=== PATIENT | male | born 1965 | race Caucasian/White ===

== ENCOUNTER 2021-02-09 16:55 | Emergency (ER) | payer BC, SELFPAY ==
[2021-02-09 17:30] VITALS: BP 93/59; PULSE 76; RESP 16; TEMP 37.1; O2SAT 97
--- NOTE | 2021-02-09 17:50 | ED_ITS ---
HPI - COVID General: Chief Complaint: COVID symptoms Stated Complaint: COVID +. Time Seen by Provider: 02/09/21 17:50 History of Present Illness: HPI Narrative: 55-year-old male patient comes in today for evaluation. Patient for the last 3 days has had symptoms of COVID-19. Patient had done a [id number] COVID-19 test that showed positive. Patient had talked to his primary care provider on the and was prescribed azithromycin. Patient came in today after talking to the office again because he had registered 88% on room air 1 time. The patient's O2 sat came up to 95% after he got up and moved around. Patient appears well. Patient appears no acute distress. MD complaint: known COVID positive COVID 19 common symptoms: positive cough, fatigue and nasal congestion Onset (ago): day(s) Severity: mild Pertinent comorbid conditions: obesity and other (Asthma) Treatment prior to arrival: antibiotics COVID Results: No Data to Display Review of Systems General: Reports: 10 or more systems reviewed and unremarkable except in HPI and below Const: Reports: fatigue ENMT: Reports: nasal congestion PFSH ED PFSH: Medical History (Updated 02/09/21 @ 18:04 by IZZY Tsai) Acute bacterial sinusitis Social History (Updated 02/09/21 @ 17:51 by Aneudy Murray RN) Smoking and tobacco status: never smoked Alcohol intake: current Alcohol intake frequency: holidays/special occasions only Physical Exam Const: COMMON NORMALS: no acute distress and patient oriented x3 GENERAL APPEARANCE: cooperative HENMT: COMMON NORMALS: normocephalic and Normal external nose present HEAD & SCALP: normal to inspection and normocephalic NOSE: Normal external nose present MOUTH: Normal oral and palatal mucosa present Eye: GENERAL EYE: appearance normal, both eyes and all related structures Neck/C-Spine: COMMON NORMALS: full ROM Chest: COMMONS NORMALS: normal inspection of the chest Resp: COMMON NORMALS: normal respiratory effort and clear to auscultation bilaterally EFFORT & INSPECTION: Yes able to speak in complete sentences AUSCULTATION: clear to auscultation bilaterally Cardio: COMMON NORMALS: regular rate and regular rhythm RATE: regular rate RHYTHM: regular rhythm GI: COMMON NORMALS: non-tender Extremity: COMMON NORMALS: normal to inspection Neuro: COMMON NORMALS: patient oriented x3 and moves all extremities Psych: COMMON NORMALS: mental status grossly normal and cooperative Skin: COMMON NORMALS: no rashes or lesions noted GENERAL SKIN EXAM: no rashes or lesions noted Course Vital Signs: Vital signs: Vital Signs Temperature 98.7 F 02/09/21 17:30 Pulse Rate 76 02/09/21 17:30 Respiratory Rate 16 02/09/21 17:30 Blood Pressure 93/59 02/09/21 17:30 Pulse Oximetry 97 02/09/21 17:30 MDM - COVID MDM Narrative: Medical decision making narrative: 55-year-old male patient comes in today for complaints of episode of hypoxia. Patient recently was diagnosed with COVID-19 on 02/08 after being ill for 3 days since he . Patient became concerned when he was laying down and he went to check his oxygen because he felt slightly short of breath and noticed that he was satting 88%. Patient got up and moved around and his pulse oxygen came up to 95%. After talking with his primary care provider he was recommended to come to the ER for further evaluation. On exam patient's lungs were clear to auscultation. Vital signs were normal. Differential diagnosis includes but not limited to pneumonia, COVID-19, upper respiratory infection. Reviewed exam with patient with recommendations for treatment with monoclonal antibodies. We will go ahead and set up for patient for outpatient infusion. Case management was notified to assist with the appointment time. Prescription was written and placed in the chart. I reviewed with patient the recommendations of the treatment and what the benefits and the risks were. Patient reported understanding and agreed to plan. COVID Results: No Data to Display Discharge Plan Discharge Patient Disposition: Home Clinical Impression: COVID-19 Condition: Stable Prescriptions: No Action azithromycin [Zithromax Z-Chito] 250 mg tablet See Rx Instructions PO .COMPLEX Qty: 6 RF: 0 Discharge Orders: Discharge ED (Routine); Ordered 02/09/21 Ordered By: Alvarez Bailey Referrals: Sissy Coello FNP [Primary Care Provider] - Discharge Diet: Usual diet Discharge Activity: Increase activity as tolerated Patient Instructions: Viral Syndrome (ED), Opioid Safety Activity Restrictions/Additional Instructions: Continue with routine care. Drink plenty of water. Use acetaminophen and ibuprofen for pain and fever. Case management will contact you regarding the infusion time appointment for monoclonal antibodies. Continue to monitor oxygen saturation at home. If your oxygen saturation stays below 90 without after position change, cough, and water to clear airways. Return to the ER for further evaluation and treatment. Return to the ER for chest pain and increasing shortness of breath. Coding Level of Care Code ED Appliance Technician for Geno Dias
--- NOTE | 2021-02-09 18:57 | PC.NURSE ---
pt seen and discharged from [facility]. No nurse performed assessment on this pt.
--- NOTE | 2021-02-11 10:22 | DCPLANNER ---
Addendum entered by Luz Harmon 02/18/21 13:52: global marketing manager called patient to check on patient after receiving the monoclonal antibody infusion. global marketing manager unable to speak with patient at this time. A voicemail was left for patient to return case resource manager phone call. Original Note: global marketing manager had message to fax an order for the monoclonal antibody infusion to centralized scheduling. global marketing manager faxed the order to centralized scheduling.
== END 2021-02-09 18:28 | disposition home or self-care (01) ==
PROVIDERS: Emergency Provider Nurse Practitioner Family; PCP Nurse Practitioner Family
DX: U07.1 COVID-19 (principal)
CPT/HCPCS: 99282

== ENCOUNTER → 2022-01-23 10:57 | Outpatient (BNVA) | payer BC, SELFPAY | PROVIDERS: PCP Physician Assistant Medical; Visit Provider Nurse Practitioner | DX: M25.522 Pain in left elbow (principal); M70.22 Olecranon bursitis, left elbow | CPT/HCPCS: 73080 ==